=== PATIENT | male | born 1960 | race Caucasian/White ===

== ENCOUNTER 2016-09-29 16:30 | Emergency (ER) | payer BC, OTHER ==
[~2016-09-29] VITALS: Ht 175.3 cm; Wt 98.0 kg
[~2016-09-29 16:30] MED LIST: ASPIRIN325 MG PO; DILAUDID2 MG PO; ONDANSETRON HCL4 MG PO; PERCOCET 10/1 TABLET PO
[2016-09-29 16:36] VITALS: BP 169/93
== END 2016-09-29 19:40 | disposition left against medical advice (07) ==
LOC: EME 16:30
DX: R60.9 Edema, unspecified (principal); Z53.21 Procedure and treatment not carried out due to patient leaving prior to being seen by health care provider

== ENCOUNTER 2016-12-09 21:16 | Emergency (ER) | payer BC, OTHER | END 2016-12-09 22:42 | disposition left against medical advice (07) | LOC: EME 21:16 | DX: R03.0 Elevated blood-pressure reading, without diagnosis of hypertension (principal); Z53.21 Procedure and treatment not carried out due to patient leaving prior to being seen by health care provider ==

== ENCOUNTER 2018-03-19 11:16 | Emergency (ER) | payer OTHER ==
[~2018-03-19] VITALS: Ht 175.3 cm; Wt 90.4 kg
[2018-03-19 12:29] LABS: HEMATOCRIT 43.3 % (38.0-50.0); HEMOGLOBIN 14.4 G/DL (12.5-16.6); MCH 28.9 PG (29.0-34.0); MCHC 33.3 G/DL (30.0-36.0); MCV 86.8 FL (86-99); PLATELET COUNT 335 K/uL (156-360); RBC DIS.WIDTH-CV 14.7 % (11.8-14.6); RBC DIS.WIDTH-SD 47.4 % (39-53); RED BLOOD COUNT 4.99 M/uL (4.00-5.50); WHITE BLOOD COUNT 7.6 K/uL (4.1-10.2)
[2018-03-19 12:36] LABS: INTER. NORMALIZED RATIO 1.1
[2018-03-19 12:39] LABS: ALBUMIN 4.4 g/dL (3.2-4.8); CHLORIDE 102 mEq/L (99-109); POTASSIUM 4.6 mEq/L (3.7-5.4); SODIUM 139 mEq/L (136-147)
[2018-03-19 12:41] LABS: GLUCOSE 103 mg/dL (70-99); TOTAL PROTEIN 7.8 g/dL (6.4-8.3)
[2018-03-19 12:43] LABS: TOTAL BILIRUBIN 0.4 mg/dL (0.0-1.0)
[2018-03-19 12:45] LABS: ALKALINE PHOSPHATASE 95 IU/L (3-129); CREATININE 0.8 mg/dL (0.6-1.3); GFR ESTIMATE (CALCULATED) > 59 mL/min/ (58.99-99999)
[2018-03-19 12:46] LABS: AST (GOT) 23 IU/L (2-34); UREA NITROGEN (BUN) 13 mg/dL (9-23)
[2018-03-19 12:48] LABS: ALT (GPT) 27 IU/L (3-49); LIPASE 7 U/L (1.0-51.0)
[2018-03-19] MEDS ORDERED: ENULOSE10 GM/15 M PO (15:54)
[2018-03-19] MEDS ORDERED: PERCOCET 5/31 TABLET PO (15:54)
[2018-03-19 16:42] VITALS: BP 112/86
== END 2018-03-19 16:43 | disposition home or self-care (01) ==
LOC: EME 11:16
PROVIDERS: Emergency Medicine
DX: R10.30 Lower abdominal pain, unspecified (principal); Z98.890 Other specified postprocedural states; I10 Essential (primary) hypertension; I73.9 Peripheral vascular disease, unspecified; Z95.820 Peripheral vascular angioplasty status with implants and grafts; Z98.1 Arthrodesis status; F17.200 Nicotine dependence, unspecified, uncomplicated; Z88.0 Allergy status to penicillin
CPT/HCPCS: 71275; 74174; 80053; 83690; 85027; 85610; J2060; J2270; J2405; J3010; J7030